=== PATIENT | female | born 1985 | race Caucasian/White ===

== ENCOUNTER 2019-07-26 12:25 | Emergency (ER) | payer SELFPAY ==
[~2019-07-26] VITALS: Ht 172.7 cm; Wt 71.2 kg
--- NOTE | 2019-07-26 13:00 | NUR ---
pt walked out of er. no sign of distress. Addendum: 07/26/19 at 1310 by MARILOU lwgal by
== END 2019-07-26 13:00 | disposition left against medical advice (07) ==
LOC: ER 12:25
DX: Z53.21 Procedure and treatment not carried out due to patient leaving prior to being seen by health care provider (principal)
CPT/HCPCS: A4663